=== PATIENT | male | born 1990 | race Two or more races ===

== ENCOUNTER 2018-05-06 18:18 | Emergency (ER) | payer SELFPAY ==
--- NOTE | 2018-05-06 19:30 | ER Document Report ---
ED GI/ - General Chief Complaint: Penile Pain Stated Complaint: URINARY ISSUE Time Seen by Provider: 05/06/18 19:18 Mode of Arrival: Ambulatory Information source: Patient Notes: 28-year-old male presents to ED for complaint of penile pain since Friday. He started he had some clear discharge and had pain when he at the end of the urination or when he got an erection. He stated he was concerned if it would function same estimated and everything looked fine. He states the pain a little worse on Friday he still had some clear discharge showing masturbated again and pain a little worse. He stated on Friday the pain was a little better, he stated this morning he had the pain again but now it is all gone. He states he was concerned so he came to get it checked out. He states yesterday he was palpating himself and he has some pain at the base of the shaft but that is better now. TRAVEL OUTSIDE OF THE [place] IN LAST 30 DAYS: No - HPI Patient complains to provider of: Other - Penile discharge and pain eating better Onset: Other - Friday Timing/Duration: Better Quality of pain: Burning - Tingling Severity at maximum: Moderate Severity in ED: Mild Pain Level: 1 Location: Other - Penile pain mild discharge Sexual history: Active, Unprotected intercourse Associated symptoms: Penile discharge, Other - Pain with urination Exacerbated by: Other - Urination and palpation Relieved by: Denies Similar symptoms previously: Yes Recently seen / treated by doctor: No - Related Data Allergies/Adverse Reactions: No Known Allergies Allergy (Unverified 05/06/18 18:20) Past Medical History - General Information source: Patient - Social History Smoking Status: Never Smoker Cigarette use (# per day): No Chew tobacco use (# tins/day): No Smoking Education Provided: No Frequency of alcohol use: Social Drug Abuse: None Occupation: [place] Lives with: Alone - With small daughter Family History: Reviewed & Not Pertinent Patient has suicidal ideation: No Patient has homicidal ideation: No - Past Medical History Cardiac Medical History: Reports: None Pulmonary Medical History: Reports: Hx Asthma EENT Medical History: Reports: None Neurological Medical History: Reports: None Endocrine Medical History: Reports: None Renal/ Medical History: Reports: None Malignancy Medical History: Reports None GI Medical History: Reports: None Musculoskeletal Medical History: Reports Hx Musculoskeletal Trauma - Fractured clavicle as a small child Skin Medical History: Reports None Psychiatric Medical History: Reports: None Traumatic Medical History: Reports: None Infectious Medical History: Reports: None Past Surgical History: Reports: Hx Orthopedic Surgery - Fractured clavicle as a small child - Immunizations Immunizations up to date: Yes Review of Systems - Review of Systems Constitutional: No symptoms reported EENT: No symptoms reported Cardiovascular: No symptoms reported Respiratory: No symptoms reported Gastrointestinal: No symptoms reported Genitourinary: No symptoms reported, Burning Male Genitourinary: Penile discharge - Clear, Other - Penile pain Musculoskeletal: No symptoms reported Skin: No symptoms reported Hematologic/Lymphatic: No symptoms reported Neurological/Psychological: No symptoms reported -: Yes All other systems reviewed and negative Physical Exam - Vital signs Vitals: Temp Pulse Resp BP Pulse Ox 98.5 F 74 16 139/81 H 99 05/06/18 18:26 05/06/18 18:26 05/06/18 18:26 05/06/18 18:26 05/06/18 18:26 Interpretation: Normal - General General appearance: Appears well, Alert - HEENT Head: Normocephalic, Atraumatic Eyes: Normal Pupils: PERRL - Respiratory Respiratory status: No respiratory distress Chest status: Nontender Breath sounds: Normal Chest palpation: Normal - Cardiovascular Rhythm: Regular Heart sounds: Normal auscultation Murmur: No - Abdominal Inspection: Normal Distension: No distension Bowel sounds: Normal Tenderness: Nontender Organomegaly: No organomegaly - Genitourinary Inspection: Penile discharge Tenderness: Other - Penile pain Cremasteric reflex: Normal Scrotum: Normal - Back Back: Normal, Nontender - Extremities General upper extremity: Normal inspection, Nontender, Normal color, Normal ROM , Normal temperature General lower extremity: Normal inspection, Nontender, Normal color, Normal ROM , Normal temperature, Normal weight bearing. No: Mahesh's sign - Neurological Neuro grossly intact: Yes Cognition: Normal Orientation: AAOx4 [place] Coma Scale Eye Opening: Spontaneous [place] Coma Scale Verbal: Oriented [place] Coma Scale Motor: Obeys Commands [place] Coma Scale Total: 15 Speech: Normal Motor strength normal: LUE, RUE, LLE, RLE Sensory: Normal - Psychological Associated symptoms: Normal affect, Normal mood - Skin Skin Temperature: Warm Skin Moisture: Dry Skin Color: Normal Course - Re-evaluation Re-evalutation: 05/06/18 20:40 Urine was negative for UTI. Patient does not want to wait for the results of the GC and chlamydia. He will be treated with Rocephin and azithromycin in the emergency room. He has been given the phone number to call tomorrow for results of his GC and chlamydia. Patient is agreeable with this treatment plan. - Vital Signs Vital signs: Temp Pulse Resp BP Pulse Ox 98.5 F 74 16 139/81 H 99 05/06/18 18:26 05/06/18 18:26 05/06/18 18:26 05/06/18 18:26 05/06/18 18:26 - Laboratory Laboratory results interpreted by me: 05/06/18 19:29 Urine Urobilinogen 4.0 H Discharge - Discharge Clinical Impression: Urethritis Condition: Stable Disposition: HOME, SELF-CARE Instructions: Family Physicians / Practices Additional Instructions: Urethritis You have urethritis, an infection of the urethra. The usual symptoms are pain on urination and discharge. The infection is often caused by gonorrhea or chlamydia. Treatment is antibiotics. In addition, any sexual contacts should be evaluated by a physician as soon as possible. As this infection can be transmitted sexually, refrain from sexual activity until the infection is confirmed as healed by your physician. If gonorrhea or chlamydia is found on culture, the health department must be notified. Call the doctor at once if you develop difficulty passing your urine, high fever, rash, joint swelling, or other new symptoms. CEPHALOSPORINS: An antibiotic of the cephalosporin class has been prescribed. This type of antibiotic covers a wide variety of infections, including those of the skin, lungs, middle ear, and urinary tract. This antibiotic is somewhat similar to the penicillin family. In rare cases , a person who is allergic to penicillin will also be allergic to this medication. If you have had a severe allergic reaction to penicillin, and have not taken this antibiotic since that time, notify your doctor. Antibiotics which cover many germs ("broad spectrum" antibiotics) are more likely to cause diarrhea or "yeast" infections. Women prone to vaginal yeast problems may suffer an attack after taking this antibiotic. In infants, oral thrush (white spots "stuck" on the cheek) or yeast diaper rash may result. See your doctor if these problems occur. Call the doctor at once if you develop hives, itching, shortness of breath , or lightheadedness. AZITHROMYCIN: Azithromycin (Zithromax) is a broad spectrum antibiotic in the same class as erythromycin. It can treat a variety of bacterial infections, but is most frequently used for respiratory infections. Azithromycin is extremely long-lasting. It accumulates in body tissues and continues to kill bacteria for many days. In order to improve absorption, Azithromycin should be taken at least one hour before or two hours after a meal. It does not have the same strong tendency to upset the stomach as erythromycin and is usually very well tolerated. Patients who have had a rash or other true allergic reactions to erythromycin should not take this medication. Call if you develop gastrointestinal distress, severe diarrhea, rash, hives, itching, or shortness of breath. FOLLOW-UP CARE: If you have been referred to a physician for follow-up care, call the physician s office for an appointment as you were instructed or within the next two days. If you experience worsening or a significant change in your symptoms, notify the physician immediately or return to the Emergency Department at any time for re-evaluation. Forms: Elevated Blood Pressure
[2018-05-06 19:56] LABS: APPEARANCE,URINE SLIGHTLY-CLOUDY; BILIRUBIN,URINE NEGATIVE (NEGATIVE); COLOR,URINE YELLOW; GLUCOSE, URINE NEGATIVE (NEGATIVE); KETONES,URINE NEGATIVE (NEGATIVE); LEUKOCYTE ESTERASE,URINE NEGATIVE (NEGATIVE); NITRITE,URINE NEGATIVE (NEGATIVE); PROTEIN,URINE NEGATIVE (NEGATIVE); URINE SPECIFIC GRAVITY 1.027
[2018-05-06] MEDS ORDERED: LIDOCAINE 1% INJ-PF (10 MG/ML) 30 ML SDV INJ ONE (20:11)
[2018-05-06] MEDS ORDERED: CEFTRIAXONE INJ 250 MG VIAL IM ONE (20:11)
[2018-05-06] MEDS ORDERED: AZITHROMYCIN 250 MG TABLET PO ONE (20:11)
[2018-05-06 20:47] VITALS: BP 128/78
[2018-05-06 21:14] LABS: CHLAM PCR DETECTED (NOT DETECT); GON PCR NOT DETECTED (NOT DETECT)
== END 2018-05-06 20:45 | disposition home or self-care (01) ==
LOC: ER 18:18
DX: N34.2 Other urethritis (principal); N48.89 Other specified disorders of penis; J45.909 Unspecified asthma, uncomplicated
CPT/HCPCS: 99283; 96372; 81001; 87491; 87591; J3490; J0696

== ENCOUNTER 2018-11-28 19:38 | Emergency (ER) | payer OTHER ==
--- NOTE | 2018-11-28 19:55 | ER Document Report ---
ED Medical Screen (RME) - General Chief Complaint: Abdominal Pain Stated Complaint: ABDOMINAL PAIN Time Seen by Provider: 11/28/18 19:52 Mode of Arrival: Ambulatory Information source: Patient TRAVEL OUTSIDE OF THE [place] IN LAST 30 DAYS: No - HPI Patient complains to provider of: abd pain Onset: This morning - pt with onset of low abd pain since earlier this am. Plus nausea - Related Data Allergies/Adverse Reactions: No Known Allergies Allergy (Verified 11/28/18 19:42) Past Medical History Pulmonary Medical History: Reports: Hx Asthma Renal/ Medical History: Denies: Hx Peritoneal Dialysis Musculoskeltal Medical History: Reports Hx Musculoskeletal Trauma - Fractured clavicle as a small child Past Surgical History: Reports: Hx Orthopedic Surgery - Fractured clavicle as a small child - Immunizations Immunizations up to date: Yes Physical Exam - Vital signs Vitals: Temp Pulse Resp BP Pulse Ox 98.9 F 68 14 134/73 H 99 11/28/18 19:48 11/28/18 19:48 11/28/18 19:48 11/28/18 19:48 11/28/18 19:48 Course - Vital Signs Vital signs: Temp Pulse Resp BP Pulse Ox 98.9 F 68 14 134/73 H 99 11/28/18 19:48 11/28/18 19:48 11/28/18 19:48 11/28/18 19:48 11/28/18 19:48
[2018-11-28 20:20] LABS: ABSOLUTE EOSINOPHILS # (AUTO) 0.1 10^3/uL (0.0-0.6); ABSOLUTE LYMPHOCYTES (AUTO) 1.4 10^3/uL (0.5-4.7); ABSOLUTE MONOCYTES (AUTO) 0.6 10^3/uL (0.1-1.4); BASOPHILS % (AUTO) 0.3 % (0-2); EOSINOPHILS % (AUTO) 0.5 % (0-6); HEMOGLOBIN 15.3 g/dL (13.5-17.0); LYMPHOCYTES % (AUTO) 11.3 % (13-45); MEAN CORPUSCULAR HEMOGLOBIN 31.6 pg (27.0-33.4); MEAN CORPUSCULAR HGB CONC 35.6 g/dL (32.0-36.0); MEAN CORPUSCULAR VOLUME 89 fl (80-97); MONOCYTES % (AUTO) 5.1 % (3-13); PLATELET COUNT 177 10^3/uL (150-450); RED BLOOD COUNT 4.84 10^6/uL (4.35-5.55); RED CELL DISTRIBUTION WIDTH 13.2 % (11.5-14.0); SEGMENTED NEUTROPHILS % (AUTO) 82.8 % (42-78); TOTAL CELLS COUNTED % (AUTO) 100 %; WHITE BLOOD COUNT 12.1 10^3/uL (4.0-10.5)
[2018-11-28 20:26] LABS: APPEARANCE,URINE CLEAR; BILIRUBIN,URINE NEGATIVE (NEGATIVE); COLOR,URINE DARK YELLOW; GLUCOSE, URINE NEGATIVE (NEGATIVE); KETONES,URINE NEGATIVE (NEGATIVE); LEUKOCYTE ESTERASE,URINE NEGATIVE (NEGATIVE); NITRITE,URINE NEGATIVE (NEGATIVE); PROTEIN,URINE NEGATIVE (NEGATIVE); URINE SPECIFIC GRAVITY 1.021
--- NOTE | 2018-11-28 20:37 | RADIOLOGY REPORT (SQ) ---
XR ABDOMEN SUPINE AND ERECT WITH CHEST (ABD ACUTE SERIES) HISTORY: Abdominal pain. COMPARISON: None. FINDINGS: There is a nonobstructive bowel gas pattern. No free air or air-fluid levels on the upright view. The visualized lung bases are clear. There are no acute osseous findings. IMPRESSION: No evidence of bowel obstruction.
[2018-11-28 20:38] LABS: ALANINE AMINOTRANSFERASE 92 U/L (21-72); ALBUMIN 4.8 g/dL (3.5-5.0); ALKALINE PHOSPHATASE 114 U/L (38-126); ANION GAP 11 (5-19); ASPARTATE AMINO TRANSFERASE 71 U/L (17-59); BILIRUBIN,DIRECT 0.5 mg/dL (0.0-0.4); BILIRUBIN,TOTAL 1.3 mg/dL (0.2-1.3); BLOOD UREA NITROGEN 10 mg/dL (7-20); CARBON DIOXIDE 29 mmol/L (22-30); CHLORIDE 103 mmol/L (98-107); GLUCOSE 125 mg/dL (75-110); LIPASE 113.7 U/L (23-300); POTASSIUM 4.1 mmol/L (3.6-5.0); SODIUM 142.5 mmol/L (137-145)
[2018-11-28] MEDS ORDERED: MORPHINE SULFATE 10 MG/ML INJ IV PRN (21:25)
[2018-11-28] MEDS ORDERED: RINGERS SOLUTION,LACTATED 1,000 ML IV ONE (21:25)
[2018-11-28] MEDS ORDERED: ONDANSETRON HCL INJ/PF 4 MG/2 ML SDV IV ONE (21:25)
[2018-11-28] MEDS ORDERED: KETOROLAC TROMETHAMINE INJ/PF 30 MG/1 ML SDV IV ONE (21:25)
[2018-11-28 21:27] LABS: A TYPE INFLUENZA AG NEGATIVE (NEGATIVE); B INFLUENZA AG NEGATIVE (NEGATIVE)
--- NOTE | 2018-11-28 21:28 | ER Document Report ---
ED General - General Chief Complaint: Abdominal Pain Stated Complaint: ABDOMINAL PAIN Time Seen by Provider: 11/28/18 19:52 Mode of Arrival: Ambulatory Notes: Patient is a 28-year-old male without chronic medical problems, no prior abdominal surgical history, presents with 12 hours of progressively worsening pain to the suprapubic region as well as the right lower quadrant of his abdomen. Patient states the pain started gradually, has become increasingly severe throughout the day. It is a dull, throbbing, aching discomfort to the right lower abdomen. Nothing seems to improve or worsen that pain. No history of similar symptoms in the past. Has not seen his primary care physician regarding today's concerns. Reports that he has been nauseated but has not vomited since onset of the pain. Reports that over the past several days he has had flulike symptoms including cough, nasal congestion as well as nausea and vomiting and that his significant other had a positive flu test. TRAVEL OUTSIDE OF THE [place] IN LAST 30 DAYS: No - Related Data Allergies/Adverse Reactions: No Known Allergies Allergy (Verified 11/28/18 19:42) Past Medical History - General Information source: Patient - Social History Smoking Status: Never Smoker Chew tobacco use (# tins/day): No Frequency of alcohol use: Occasional Drug Abuse: None Lives with: Spouse/Significant other Family History: Reviewed & Not Pertinent Patient has suicidal ideation: No Patient has homicidal ideation: No Pulmonary Medical History: Reports: Hx Asthma Renal/ Medical History: Denies: Hx Peritoneal Dialysis Musculoskeletal Medical History: Reports Hx Musculoskeletal Trauma - Fractured clavicle as a small child Past Surgical History: Reports: Hx Orthopedic Surgery - Fractured clavicle as a small child - Immunizations Immunizations up to date: Yes Review of Systems - Review of Systems Notes: Constitutional: Negative for fever. HENT: Negative for sore throat. Eyes: Negative for visual changes. Cardiovascular: Negative for chest pain. Respiratory: Negative for shortness of breath. Gastrointestinal: Positive for abdominal pain, nausea Genitourinary: Negative for dysuria. Musculoskeletal: Negative for back pain. Skin: Negative for rash. Neurological: Negative for headaches, weakness or numbness. 10 point ROS negative except as marked above and in HPI. Physical Exam - Vital signs Vitals: Temp Pulse Resp BP Pulse Ox 98.9 F 68 14 134/73 H 99 11/28/18 19:48 11/28/18 19:48 11/28/18 19:48 11/28/18 19:48 11/28/18 19:48 Notes: PHYSICAL EXAMINATION: GENERAL: Appears moderately uncomfortable but in no acute distress HEAD: Atraumatic, normocephalic. EYES: Pupils equal round and reactive to light, extraocular movements intact, sclera anicteric, conjunctiva are normal. ENT: nares patent, oropharynx clear without exudates. Moist mucous membranes. NECK: Normal range of motion, supple without lymphadenopathy LUNGS: Breath sounds clear to auscultation bilaterally and equal. No wheezes rales or rhonchi. HEART: Regular rate and rhythm without murmurs ABDOMEN: Soft, mild focal tenderness to the suprapubic and right lower quadrant otherwise no focal areas of tenderness, normoactive bowel sounds. No guarding, no rebound. No masses appreciated. EXTREMITIES: Normal range of motion, no pitting or edema. No cyanosis. NEUROLOGICAL: No focal neurological deficits. Moves all extremities spontaneously and on command. PSYCH: Normal mood, normal affect. SKIN: Warm, Dry, normal turgor, no rashes or lesions noted. Course - Re-evaluation Re-evalutation: 11/28/18 21:27 Patient presents with right lower quadrant abdominal pain that is been ongoing and progressively worsening throughout the last 12-24 hours. On exam he is most tender to just medial to the right lower quadrant. He does have some mild rebound. Has had reported fevers at home although none recorded. Mild leukocytosis noted on labs. Differential consideration includes mesenteric adenitis versus acute appendicitis. He denies urinary symptoms. Urinalysis is clear. No evidence of testicular torsion on exam. Will proceed with CT the abdomen pelvis to further evaluate. 11/28/18 22:45 CT scan of the abdomen and pelvis is normal without any evidence of acute pathology, visualized appendix is normal. Suspect mesenteric adenitis based on clinical history. Repeat abdominal exam is completely benign after receiving analgesia without any areas of focal rebound, guarding. At this time will discharge with return precautions and follow-up recommendations. Verbal discharge instructions given a the bedside and opportunity for questions given. Medication warnings reviewed. Patient is in agreement with this plan and has verbalized understanding of return precautions and the need for primary care follow-up in the next 24-72 hours. - Vital Signs Vital signs: Temp Pulse Resp BP Pulse Ox 98.1 F 68 14 151/78 H 100 11/28/18 22:04 11/28/18 19:48 11/28/18 19:48 11/28/18 22:04 11/28/18 22:04 - Laboratory Result Diagrams: 11/28/18 20:05 11/28/18 20:05 Laboratory results interpreted by me: 11/28/18 11/28/18 11/28/18 20:05 20:05 20:05 WBC 12.1 H Seg Neutrophils % 82.8 H Lymphocytes % 11.3 L Absolute Neutrophils 10.0 H Glucose 125 H Direct Bilirubin 0.5 H AST 71 H ALT 92 H Urine Urobilinogen 4.0 H Discharge - Discharge Clinical Impression: Mesenteric adenitis, Right lower quadrant abdominal pain Condition: Good Disposition: HOME, SELF-CARE Instructions: Observation for Appendicitis ([facility]) Additional Instructions: You have been seen in the Emergency Department (ED) for abdominal pain. Your evaluation did not identify a clear cause of your symptoms but was generally reassuring. You likely have mesenteric adenitis which is reactive lymph nodes from the recent viral infection that you have had. For your pain: Take ibuprofen 600 mg and acetaminophen 1000 mg every 6 hours together as needed for pain. Please follow up with your doctor as soon as possible regarding today's emergent visit and the symptoms that are bothering you. Return to the ED if your abdominal pain worsens or fails to improve, you develop bloody vomiting, bloody diarrhea, you are unable to tolerate fluids due to vomiting, fever greater than 101, or other symptoms that concern you.
--- NOTE | 2018-11-28 22:09 | RADIOLOGY REPORT (SQ) ---
CT ABDOMEN PELVIS WITH IV CONTRAST HISTORY: Right lower quadrant pain. COMPARISON: None. TECHNIQUE: CT scan of the abdomen and pelvis with IV contrast. This exam was performed according to our departmental dose-optimization program, which includes automated exposure control, adjustment of the mA and/or kV according to patient size and/or use of iterative reconstruction technique. FINDINGS: The lung bases are clear. No pleural or pericardial effusions. There is no hiatal hernia. The liver, spleen, pancreas, gallbladder, adrenal glands, and kidneys are unremarkable. No urinary stones are seen. The pelvic organs are also unremarkable. No small bowel obstruction. The appendix is normal. There is no evidence of diverticulitis. No intraperitoneal free fluid or free air is identified. The aorta is normal caliber. No acute osseous findings are appreciated. There is no body wall hernia. IMPRESSION: No acute abdominal or pelvic pathology.
[2018-11-28 22:43] VITALS: BP 151/78
== END 2018-11-28 22:58 | disposition home or self-care (01) ==
LOC: ER 19:38
DX: I88.0 Nonspecific mesenteric lymphadenitis (principal); R10.31 Right lower quadrant pain; R11.0 Nausea; R05 Cough; D72.829 Elevated white blood cell count, unspecified; R09.81 Nasal congestion; J45.909 Unspecified asthma, uncomplicated; Z20.828 Contact with and (suspected) exposure to other viral communicable diseases
CPT/HCPCS: 99284; 96361; 96374; 96375; 36415; 83690; 85025; 80053; 81001; 87804; 74022; 74177; J1885; J2270; J2405; J7120